=== PATIENT | female | born 1980 | race Caucasian/White ===

== ENCOUNTER 2017-07-27 02:55 | Emergency (ER) | payer SELFPAY ==
[2017-07-27 04:04] VITALS: BP 137/83; PULSE 79; TEMP 98.7; BMI 35.7
--- NOTE | 2017-07-27 05:08 | PDOC ---
History of Present Illness - History of Present Illness Initial Comments: 07/27/17 05:12 Patient is a 36 F with no significant PMHx, who present to the ED with 3 days cough. Patient reports she has been sick for 2 weeks but has worsening cough for the past 3 days which she says is worse at night time. Patient reports that it hurt her chest when she coughs. She says that she has a flight to [place] this afternoon and wanted to make sure she is okay to fly. She denies sick contacts. Denies any PMHx. Denies receiving flu shot. LMP 1-2 weeks ago. Reports normal appetite. <Zina Nunez - Last Filed: 07/27/17 05:12> <Ruchi Trent - Last Filed: 07/27/17 06:55> - General Chief Complaint: Respiratory Stated Complaint: COUGHING WITH PAIN TO CHEST Time Seen by Provider: 07/27/17 04:00 Past History <Zina Nunez - Last Filed: 07/27/17 05:12> - Past Medical History COPD: No - Suicide/Smoking/Psychosocial Hx Smoking History: Never smoked Hx Alcohol Use: No Drug/Substance Use Hx: No <Ruchi Trent - Last Filed: 07/27/17 06:55> - Past Medical History Allergies/Adverse Reactions: Allergies Allergy/AdvReac Type Severity Reaction Status Date / Time No Known Allergies Allergy Verified 07/27/17 03:49 Home Medications: Ambulatory Orders Azithromycin [Zithromax -] 250 mg PO DAILY #4 tablet 07/27/17 Review of Systems - Review of Systems Comments:: 07/27/17 05:12 GENERAL/CONSTITUTIONAL: No fever or chills. No weakness. HEAD, EYES, EARS, NOSE AND THROAT: No change in vision. No ear pain or discharge. No sore throat. CARDIOVASCULAR: +chest discomfort, no shortness of breath. RESPIRATORY: +cough, no wheezing, or hemoptysis. GASTROINTESTINAL: No nausea, vomiting, diarrhea or constipation. GENITOURINARY: No dysuria, frequency, or change in urination. MUSCULOSKELETAL: No joint or muscle swelling or pain. No neck or back pain. SKIN: No rash NEUROLOGIC: No headache, vertigo, loss of consciousness, or change in strength/ sensation. ENDOCRINE: No increased thirst. No abnormal weight change. HEMATOLOGIC/LYMPHATIC: No anemia, easy bleeding, or history of blood clots. ALLERGIC/IMMUNOLOGIC: No hives or skin allergy. <Zina Nunez - Last Filed: 07/27/17 05:12> *Physical Exam - Vital Signs Last Vital Signs Temp Pulse Resp BP Pulse Ox 98.7 F 79 137/83 99 07/27/17 03:36 07/27/17 03:36 07/27/17 03:36 07/27/17 03:36 - Physical Exam Comments: 07/27/17 05:13 GENERAL: Awake, alert, and fully oriented, in no acute distress HEAD: No signs of trauma EYES: PERRLA, EOMI, sclera anicteric, conjunctiva clear ENT: Auricles normal inspection, hearing grossly normal, nares patent, oropharynx clear without exudates. Moist mucosa NECK: Normal ROM, supple, no lymphadenopathy, JVD, or masses LUNGS: Breath sounds equal, clear to auscultation bilaterally. No wheezes, and no crackles HEART: Regular rate and rhythm, normal S1 and S2, no murmurs, rubs or gallops ABDOMEN: Soft, nontender, normoactive bowel sounds. No guarding, no rebound. No masses EXTREMITIES: Normal range of motion, no edema. No clubbing or cyanosis. No cords, erythema, or tenderness NEUROLOGICAL: Cranial nerves II through XII grossly intact. Normal speech, normal gait SKIN: Warm, Dry, normal turgor, no rashes or lesions noted. <Zina Nunez - Last Filed: 07/27/17 05:12> - Vital Signs Last Vital Signs Temp Pulse Resp BP Pulse Ox 98.7 F 79 137/83 99 07/27/17 03:36 07/27/17 03:36 07/27/17 03:36 07/27/17 03:36 <Ruchi Trent - Last Filed: 07/27/17 06:55> *DC/Admit/Observation/Transfer - Attestations Scribe Attestion: 07/27/17 05:13 Documentation prepared by Zina Nunez, acting as medical physicist for Ruchi Trent MD. <Zina Nunez - Last Filed: 07/27/17 05:12> - Discharge Dispostion Admit: No <Ruchi Trent - Last Filed: 07/27/17 06:55> Diagnosis at time of Disposition: Bronchitis - Discharge Dispostion Disposition: HOME Condition at time of disposition: Stable - Prescriptions Prescriptions: Azithromycin [Zithromax -] 250 mg PO DAILY #4 tablet - Patient Instructions Printed Discharge Instructions: DI for Acute Bronchitis
[2017-07-27] MEDS ORDERED: AZITHROMYCIN 250 MG TABLET PO ONE (06:54)
[2017-07-27] MEDS ORDERED: AZITHROMYCIN 250 MG TABLET ONE (06:58)
== END 2017-07-27 07:02 | disposition home or self-care (01) ==
LOC: JER 02:55
DX: J20.9 Acute bronchitis, unspecified (principal)
CPT/HCPCS: 71046-TC; 84703; 87804; 99283-25